=== PATIENT | female | born 1970 | race Caucasian/White ===

== ENCOUNTER → 2022-01-19 | Outpatient (CLI) | payer OTHER ==
[2022-01-19 15:28] LABS: HEMOGLOBIN 13.3 gm/dl (12.3-15.3); RED BLOOD COUNT 4.17 M/UL (4.00-5.10); WHITE BLOOD COUNT 6.5 K/UL (4.5-11.0)
[2022-01-19 15:56] LABS: BUN/CREATININE RATIO 9 (0-10)
[2022-01-20 08:14] LABS: VITAMIN D, 25-HYDROXY 23.1 ng/mL (30.0-100.0)
[2022-01-20 12:14] LABS: RHEUMATOID ARTHRITIS FACTOR <10.0 IU/mL (<14.0)
[2022-01-21 16:09] LABS: CHOLESTEROL, TOTAL 258 mg/dL (100-199); HDL SIZE 8.8 nm (>=9.2); HDL-C 34 mg/dL (>39); HDL-P (TOTAL) 27.8 umol/L (>=30.5); LARGE HDL-P <1.3 umol/L (>=4.8); LARGE VLDL-P 35.3 nmol/L (<=2.7); LDL SIZE 19.5 nm (>20.5); LDL SIZE 19.5 nm (>=20.8); LDL-C 125 mg/dL (0-99); LDL-P 1987 nmol/L (<1000); LP-IR SCORE 90 (<=45); SMALL LDL-P 1200 nmol/L (<=527); TRIGLYCERIDES 547 mg/dL (0-149); VLDL SIZE 63.6 nm (<=46.6)
== END ==
LOC: LAB 14:38
PROVIDERS: Emergency Medicine
DX: E53.8 Deficiency of other specified B group vitamins (principal); M79.7 Fibromyalgia; E78.2 Mixed hyperlipidemia; R53.83 Other fatigue; M15.8 Other polyosteoarthritis; E55.9 Vitamin D deficiency, unspecified
CPT/HCPCS: 36415; 80053; 80061; 82607; 83704; 84443; 84550; 85025; 86038; 86140; 86431